=== PATIENT | female | born 1980 | race Caucasian/White ===

== ENCOUNTER 2016-10-28 05:10 | Inpatient (IN) | payer MEDICAID ==
[2016-10-28] MEDS ORDERED: LACTATED RINGERS 1,000 ML ONE (05:46)
[2016-10-28] MEDS ORDERED: SUBLIMAZE IV PRN (05:56)
[2016-10-28] MEDS ORDERED: POLYCILLIN/NS 2 GM/100 ML 2 GM/100 ML BAG IV ONE ×2 (05:56→06:00)
[2016-10-28] MEDS ORDERED: XYLOCAINE 2% INFILTRATI ONE (05:56)
[2016-10-28] MEDS ORDERED: BRETHINE SUB-Q PRN (05:56)
[2016-10-28] MEDS ORDERED: ZOFRAN IV PRN (05:56)
[2016-10-28] MEDS ORDERED: MINERAL OIL PO PRN (05:56)
[2016-10-28] MEDS ORDERED: ePHEDrine SULFATE IV PRN (05:56)
[2016-10-28] MEDS ORDERED: PITOCin/NS 30 UNIT/500ML 30 UNITS/500 ML BAG IV SCH (06:00)
[2016-10-28] MEDS ORDERED: PITOCin/NS 20 UNIT/1000ML DRIP 20 UNITS/1,000 ML BAG IV SCH (06:00)
[2016-10-28] MEDS ORDERED: LACTATED RINGERS 1,000 ML IV SCH (06:00)
[2016-10-28 06:12] LABS: Hematocrit 41.9 % (30.3-42.9); Hemoglobin 14.1 gm/dl (10.1-14.3); Mean Corpuscular HGB Conc 34 % (30-34); Mean Corpuscular Hemoglobin 30 pg (28-32); Mean Corpuscular Volume 89 fl (79-97); Platelet Count 162 K/mm3 (140-440); Red Blood Count 4.73 M/mm3 (3.65-5.03); Red Cell Distribution Width 15.5 % (13.2-15.2); White Blood Count 7.2 K/mm3 (4.5-11.0)
--- NOTE | 2016-10-28 06:23 | History and Physical Report ---
History of Present Illness Date of examination: 10/28/16 (Pt arrived to Triage with SROM clear fluid) Date of admission: 10/28/16 05:17 History of present illness: EDC Confirmation: 11/05/2016 Gestational Age: 9 3/7 weeks Past History : 3 Term Births: 2 Living Children: 2 Para: 2 # 1 Delivery date: 11/18/2008 Weeks Gestation: 40 Delivery type: Delivery location: [facility] Infant Sex: Female Comments: normal size # 2 Delivery date: 12/03/2009 Weeks Gestation: 40 Delivery type: Delivery location: [facility] Sex: Female Comments: normal size Past Medical History: Negative Past Medical History Past Surgical History: negative Past Medical History Anesthesia Complications: negative Anemia: negative Autoimmune Disorder: negative Bleeding Disorder: negative Blood Transfusions: negative Breast Disease: negative Diabetes: negative Heart Disease: negative Hypertension: negative Hepatitis/Liver Disease: negative Kidney Disease/UTI: negative Neurologic/Epilepsy/Migraines: negative Phlebitis/Varicosities: negative Psychiatric: negative Pulmonary Disease/Asthma: negative Thyroid Disease: negative Hospitalizations: negative 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 of genital herpes: no Partner hx. of genital herpes: no Varicella/Chicken Pox Status: Unknown TB Risk: no Genetic History ADVANCED MATERNAL AGE Congenital Heart Defect: Mom: no Dad: no Ramirez Disease: Mom: no Dad: no Thalassemia Mom: no Dad: no Neural Tube Defect Mom: no Dad: no Down's Syndrome Mom: no Dad: no Dedrick-Sachs Mom: no Dad: no Sickle Cell Disease/Trait Mom: no Dad: no Hemophilia Mom: no Dad: no Muscular Dystrophy Mom: no Dad: no Cystic Fibrosis Mom: no Dad: no [place] Chorea Mom: no Dad: no Mental Retardation Mom: no Dad: no Fragile X Mom: no Dad: no Other Genetic/Chromosomal Disorder Mom: no Dad: no Child w/other defect Mom: no Dad: yes Comments: nephew autism Enviromental Exposures Xray Exposure: no Medication, drug, or alcohol use since LMP: no Chemical/Other Exposure: no Active Medications: None Current Allergies (reviewed today): No known allergies Laboratory Results Routine Urinalysis Leukocytes: negative Nitrite: negative Urobilinogen: negative Protein: negative Blood: negative Ketone: negative Bilirubin: negative Glucose: negative Urine HCG: positive Review of Systems General Denies fever, chills, sweats, anorexia, fatigue, weakness, malaise, weight loss and sleep disorder. Denies nausea, vomiting, headache, swelling of legs, abdominal pain, vaginal discharge, vaginal bleeding and contractions. Denies vaginal discharge, incontinence, dysuria, hematuria, urinary frequency, amenorrhea, menorrhagia, abnormal vaginal bleeding, pelvic pain, genital sores, decreased libido, painful periods, painful sex, urinary urgency, hot flashes, vaginal dryness, vaginal itching and vaginal odor. CV Denies chest pains, palpitations, syncope, dyspnea on exertion, orthopnea, PND and peripheral edema. Resp Denies cough, dyspnea at rest, excessive sputum, hemoptysis, wheezing and pleurisy. GI Denies nausea, vomiting, diarrhea, constipation, change in bowel habits, abdominal pain, melena, hematochezia, jaundice, gas/bloating, indigestion/ heartburn, dysphagia and odynophagia. Endo Denies cold intolerance, heat intolerance, polydipsia, polyphagia, polyuria and unusual weight change. Breast Denies left breast lump, right breast lump, nipple discharge, bloody discharge from nipple, breast pain, abnormal mammogram and breast enlargement. MS Denies back pain, joint pain, joint swelling, muscle cramps, muscle weakness, stiffness, arthritis, sciatica, restless legs, leg pain at night and leg pain with exertion. Derm Denies rash, itching, dryness and suspicious lesions. Neuro Denies paralysis, paresthesias, headache, seizures, tremors, vertigo, transient blindness, frequent falls, frequent headaches and difficulty walking. Psych Denies depression, anxiety, irritability and mood swings. Eyes Denies blurring, diplopia, irritation, discharge, vision loss, eye pain and photophobia. ENT Denies earache, ear discharge, tinnitus, decreased hearing, nasal congestion, nosebleeds, sore throat and hoarseness. Allergy Denies urticaria, allergic rash, hay fever and recurrent infections. Heme Denies abnormal bruising, bleeding and enlarged lymph nodes. PHYSICAL EXAM HEENT: PERRLA, normal conjunctiva, external nose and nasal mucosa normal, oropharynx clear Neck/Thyroid: supple, thyroid normal Skin no significant abnormal lesions or rashes Chest: respiratory effort normal, clear to auscultation Breasts: normal without skin changes or masses CV: regular, normal S1-S2, no murmur, no rub, no gallop Abdomen: normal bowel sounds, soft, nontender, no HSM Musculoskeletal: grossly normal ROM in joints, no joint tenderness or muscle weakness Neuro: grossly normal DTRs, sensation, strength, cranial nerves Extremities: no clubbing, cyanosis, or edema TRAFFIC OFFICER Exams Vulva/Vagina: No lesions, normal BUS, normal rugae Cervix: No lesions; no cervical motion tenderness Uterus: normal size and position, midline, mobile--about 9 wk, bladder full so hard to feel Adnexae: no masses or tenderness Rectovaginal: no masses or tenderness Past History - Obstetrical History Expected Date of Delivery: 11/05/16 Actual Gestation: 38 Week(s) 6 Day(s) : 3 Para: 2 Hx # Term Pregnancies: 2 Number of Living Children: 2 Medications and Allergies Allergies Allergy/AdvReac Type Severity Reaction Status Date / Time No Known Allergies Allergy Verified 10/28/16 05:59 Active Meds: Active Medications Fentanyl (Sublimaze) 100 mcg IV Q2H PRN PRN Reason: Labor Pain Ampicillin Sodium (Polycillin/Ns 1 Gm/50 Ml) 1 gm in 50 mls @ 100 mls/hr IV Q4HR ESTELITA PRN Reason: Protocol Ampicillin Sodium (Polycillin/Ns 2 Gm/100 Ml) 2 gm in 100 mls @ 100 mls/hr IV ONCE ONE PRN Reason: Protocol Stop: 10/28/16 06:55 Lactated Ringer's (Lactated Ringers) 1,000 mls @ 125 mls/hr IV DIRECT ESTELITA Oxytocin/Sodium Chloride (Pitocin/Ns 20 Unit/1000ml Drip) 20 units in 1,000 mls @ 125 mls/hr IV DIRECT ESTELITA Oxytocin/Sodium Chloride (Pitocin/Ns 30 Unit/500ml) 30 units in 500 mls @ 4 mls /hr IV Q30MIN ESTELITA PRN Reason: Protocol Mineral Oil (Mineral Oil) 30 ml PO QHS PRN PRN Reason: Constipation Ondansetron HCl (Zofran) 4 mg IV Q8H PRN PRN Reason: Nausea And Vomiting - Vital Signs Vital signs: Vital Signs Temp Pulse Resp BP Pulse Ox 97.0 F L 73 24 131/95 97 10/28/16 05:21 10/28/16 05:21 10/28/16 05:21 10/28/16 05:21 10/28/16 05:21 Temp Pulse Resp BP Pulse Ox 97.0 F L 70 24 131/95 97 10/28/16 05:21 10/28/16 05:35 10/28/16 05:21 10/28/16 05:25 10/28/16 05:35 - Physical Exam Breasts: Positive: deferred Cardiovascular: Regular rate, Normal S1, Normal S2 Lungs: Positive: Normal air movement Abdomen: Positive: normal appearance, soft, normal bowel sounds. Negative: distention, tenderness Genitourinary (Female): Positive: normal perenium Vulva: both: normal Vagina: Positive: normal moisture. Negative: discharge Cervix: Negative: lesion, discharge Uterus: Positive: normal size, normal contour Adnexa: both: normal Anus/Rectum: Positive: normal perianal skin, heme negative. Negative: rectal mass, hemorrhoids Extremities: Deep Tendon Reflex Grade: Normal +2 - Obstetrical FHR: category 1 Uterine Contraction Monitor Mode: External Cervical Dilatation: 3 (clear fluids continue) Cervical Effacement Percentage: 70 station: -2 Uterine Contraction Pattern: Regular Uterine Contraction Intensity: Moderate Results Result Diagrams: 10/28/16 05:35 Abnormal lab results 10/28/16 Range/Units 05:35 RDW 15.5 H (13.2-15.2) % All other labs normal. Chlamydia trachomatis, ANGELA Negative Negative *1 Neisseria gonorrhoeae, ANGELA Negative Negative *2 Tests: (2) Strep Gp B ANGELA (032560) ! Strep Gp B ANGELA [A] Positive HBsAg Screen Negative Negative *1 Rubella Antibodies, IgG 1.15 index Immune >0.99 *2 Non-immune <0.90 Equivocal 0.90 - 0.99 Immune >0.99 ABO Grouping O *3 Rh Factor Positive *4 Please note: Prior records for this patient's ABO / Rh type are not available for additional verification. Antibody Screen Negative Negative *5 RPR Non Reactive Non Reactive *6 WBC 8.0 x10E3/uL 3.4-10.8 *7 RBC 3.97 x10E6/uL 3.77-5.28 *8 Hemoglobin [L] 10.7 g/dL 11.1-15.9 *9 Hematocrit [L] 33.8 % 34.0-46.6 *10 MCV 85 fL 79-97 *11 MCH 27.0 pg 26.6-33.0 *12 MCHC 31.7 g/dL 31.5-35.7 *13 RDW 12.8 % 12.3-15.4 *14 Platelets 244 x10E3/uL 150-379 *15 Neutrophils 63 % *16 Lymphs 29 % *17 Monocytes 7 % *18 Eos 1 % *19 Basos 0 % *20 ! Immature Cells <No Reported Value> *21 Neutrophils (Absolute) 4.9 x10E3/uL 1.4-7.0 *22 Lymphs (Absolute) 2.3 x10E3/uL 0.7-3.1 *23 Monocytes(Absolute) 0.6 x10E3/uL 0.1-0.9 *24 Eos (Absolute) 0.1 x10E3/uL 0.0-0.4 *25 Baso (Absolute) 0.0 x10E3/uL 0.0-0.2 *26 ! Immature Granulocytes 0 % *27 ! Immature Grans (Abs) 0.0 x10E3/uL 0.0-0.1 *28 ! NRBC <No Reported Value> *29 Hematology Comments: <No Reported Value> *30 Tests: (3) HB Solu + Rflx [facility] ([id number]) Hemoglobin (Hgb) Solubility Negative Negative *33 Tests: (4) Panel 878325 ([id number]) HIV Screen 4th Generation wRfx Non Reactive Non Reactive *34 Tests: (5) HCV Ab w/Rflx to Verification ([id number]) ! HCV Ab <0.1 s/co ratio 0.0-0.9 *35 Tests: (6) Comment: ([id number]) ! Comment: [facility] *36 Non reactive HCV antibody screen is consistent with no HCV infection, unless recent infection is suspected or other evidence exists to indicate HCV infection. Assessment and Plan - Patient Problems (1) Group B Streptococcus carrier state affecting Onset Date: ~10/28/16 Current Visit: Yes Status: Acute Plan to address problem: Ampicillin started as per protocol (2) Spontaneous rupture of membranes Onset Date: ~10/28/16 Current Visit: Yes Status: Acute Plan to address problem: 35yo @ 38 weeks with SROM clear fluid. GBS+ Orders in EMR Anticipate delivery
--- NOTE | 2016-10-28 08:47 | Progress Note ---
Assessment and Plan Anticipate delivery. - Patient Problems (1) Group B Streptococcus carrier state affecting Onset Date: ~10/28/16 Current Visit: Yes Status: Acute (2) Spontaneous rupture of membranes Onset Date: ~10/28/16 Current Visit: Yes Status: Acute Subjective - Subjective Date of service: 10/28/16 (pt req pain medication) Interval history: EDC Confirmation: 11/05/2016 Gestational Age: 9 3/7 weeks Past History : 3 Term Births: 2 Living Children: 2 Para: 2 # 1 Delivery date: 11/18/2008 Weeks Gestation: 40 Delivery type: Delivery location: [facility] Infant Sex: Female Comments: normal size # 2 Delivery date: 12/03/2009 Weeks Gestation: 40 Delivery type: Delivery location: [facility] Infant Sex: Female Comments: normal size Past Medical History: Negative Past Medical History Past Surgical History: negative Past Medical History Anesthesia Complications: negative Anemia: negative Autoimmune Disorder: negative Bleeding Disorder: negative Blood Transfusions: negative Breast Disease: negative Diabetes: negative Heart Disease: negative Hypertension: negative Hepatitis/Liver Disease: negative Kidney Disease/UTI: negative Neurologic/Epilepsy/Migraines: negative Phlebitis/Varicosities: negative Psychiatric: negative Pulmonary Disease/Asthma: negative Thyroid Disease: negative Hospitalizations: negative 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 of genital herpes: no Partner hx. of genital herpes: no Varicella/Chicken Pox Status: Unknown TB Risk: no Genetic History ADVANCED MATERNAL AGE Congenital Heart Defect: Mom: no Dad: no Ramirez Disease: Mom: no Dad: no Thalassemia Mom: no Dad: no Neural Tube Defect Mom: no Dad: no Down's Syndrome Mom: no Dad: no Dedrick-Sachs Mom: no Dad: no Sickle Cell Disease/Trait Mom: no Dad: no Hemophilia Mom: no Dad: no Muscular Dystrophy Mom: no Dad: no Cystic Fibrosis Mom: no Dad: no [place] Chorea Mom: no Dad: no Mental Retardation Mom: no Dad: no Fragile X Mom: no Dad: no Other Genetic/Chromosomal Disorder Mom: no Dad: no Child w/other defect Mom: no Dad: yes Comments: nephew autism Enviromental Exposures Xray Exposure: no Medication, drug, or alcohol use since LMP: no Chemical/Other Exposure: no Active Medications: None Current Allergies (reviewed today): No known allergies Laboratory Results Routine Urinalysis Leukocytes: negative Nitrite: negative Urobilinogen: negative Protein: negative Blood: negative Ketone: negative Bilirubin: negative Glucose: negative Urine HCG: positive Review of Systems General Denies fever, chills, sweats, anorexia, fatigue, weakness, malaise, weight loss and sleep disorder. Denies nausea, vomiting, headache, swelling of legs, abdominal pain, vaginal discharge, vaginal bleeding and contractions. Denies vaginal discharge, incontinence, dysuria, hematuria, urinary frequency, amenorrhea, menorrhagia, abnormal vaginal bleeding, pelvic pain, genital sores, decreased libido, painful periods, painful sex, urinary urgency, hot flashes, vaginal dryness, vaginal itching and vaginal odor. CV Denies chest pains, palpitations, syncope, dyspnea on exertion, orthopnea, PND and peripheral edema. Resp Denies cough, dyspnea at rest, excessive sputum, hemoptysis, wheezing and pleurisy. GI Denies nausea, vomiting, diarrhea, constipation, change in bowel habits, abdominal pain, melena, hematochezia, jaundice, gas/bloating, indigestion/ heartburn, dysphagia and odynophagia. Endo Denies cold intolerance, heat intolerance, polydipsia, polyphagia, polyuria and unusual weight change. Breast Denies left breast lump, right breast lump, nipple discharge, bloody discharge from nipple, breast pain, abnormal mammogram and breast enlargement. MS Denies back pain, joint pain, joint swelling, muscle cramps, muscle weakness, stiffness, arthritis, sciatica, restless legs, leg pain at night and leg pain with exertion. Derm Denies rash, itching, dryness and suspicious lesions. Neuro Denies paralysis, paresthesias, headache, seizures, tremors, vertigo, transient blindness, frequent falls, frequent headaches and difficulty walking. Psych Denies depression, anxiety, irritability and mood swings. Eyes Denies blurring, diplopia, irritation, discharge, vision loss, eye pain and photophobia. ENT Denies earache, ear discharge, tinnitus, decreased hearing, nasal congestion, nosebleeds, sore throat and hoarseness. Allergy Denies urticaria, allergic rash, hay fever and recurrent infections. Heme Denies abnormal bruising, bleeding and enlarged lymph nodes. PHYSICAL EXAM HEENT: PERRLA, normal conjunctiva, external nose and nasal mucosa normal, oropharynx clear Neck/Thyroid: supple, thyroid normal Skin no significant abnormal lesions or rashes Chest: respiratory effort normal, clear to auscultation Breasts: normal without skin changes or masses CV: regular, normal S1-S2, no murmur, no rub, no gallop Abdomen: normal bowel sounds, soft, nontender, no HSM Musculoskeletal: grossly normal ROM in joints, no joint tenderness or muscle weakness Neuro: grossly normal DTRs, sensation, strength, cranial nerves Extremities: no clubbing, cyanosis, or edema NURSE PRACTITIONER Exams Vulva/Vagina: No lesions, normal BUS, normal rugae Cervix: No lesions; no cervical motion tenderness Uterus: normal size and position, midline, mobile--about 9 wk, bladder full so hard to feel Adnexae: no masses or tenderness Rectovaginal: no masses or tenderness Patient reports: movement normal Objective - Vital Signs Vital Signs: Vital Signs - 12hr 10/28/16 10/28/16 10/28/16 05:21 05:25 05:30 Temperature 97.0 F L Pulse Rate 73 74 71 Respiratory 24 Rate Blood Pressure 131/95 131/95 O2 Sat by Pulse 97 97 97 Oximetry 10/28/16 10/28/16 10/28/16 05:35 07:31 07:35 Temperature 97.7 F Pulse Rate 70 72 72 Respiratory 14 Rate Blood Pressure 106/71 106/71 O2 Sat by Pulse 97 97 97 Oximetry 10/28/16 10/28/16 10/28/16 07:40 07:45 07:50 Temperature Pulse Rate 84 79 71 Respiratory Rate Blood Pressure O2 Sat by Pulse 96 97 96 Oximetry 10/28/16 10/28/16 10/28/16 07:55 08:00 08:05 Temperature Pulse Rate 74 98 H 75 Respiratory Rate Blood Pressure O2 Sat by Pulse 97 97 96 Oximetry 10/28/16 10/28/16 10/28/16 08:10 08:15 08:20 Temperature Pulse Rate 80 79 72 Respiratory Rate Blood Pressure O2 Sat by Pulse 96 96 96 Oximetry 10/28/16 10/28/16 10/28/16 08:25 08:30 08:35 Temperature Pulse Rate 74 79 73 Respiratory Rate Blood Pressure O2 Sat by Pulse 96 96 97 Oximetry 08/10/28/16 10/28/16 08:40 08:41 08:45 Temperature Pulse Rate 76 86 92 H Respiratory Rate Blood Pressure O2 Sat by Pulse 98 92 94 Oximetry - Exam Breasts: deferred Cardiovascular: Regular rate Lungs: Normal air movement Abdomen: Present: normal appearance, soft. Absent: distention, tenderness Uterus: Present: normal FHR: auscultation normal, category 1 Uterine Contraction Monitor Mode: External Cervical Dilatation: 6 Cervical Effacement Percentage: 100 station: 0 Uterine Contraction Pattern: Regular Uterine Tone Measurement Phase: Resting Uterine Contraction Intensity: Moderate Extremities: normal Deep Tendon Reflex Grade: Normal +2 - Labs Labs: Abnormal Labs 10/28/16 05:35 RDW 15.5 H Laboratory Results - last 24 hr 10/28/16 10/28/16 05:35 05:35 WBC 7.2 RBC 4.73 Hgb 14.1 Hct 41.9 MCV 89 MCH 30 MCHC 34 RDW 15.5 H Plt Count 162 Blood Type O POSITIVE Antibody Screen Negative
[2016-10-28] MEDS ORDERED: NARCAN 2 MG/2 ML ONE (09:17)
[2016-10-28] MEDS ORDERED: BENADRYL PO PRN (09:33)
[2016-10-28] MEDS ORDERED: TYLENOL PO PRN (09:33)
[2016-10-28] MEDS ORDERED: LANSINOH TP PRN (09:33)
[2016-10-28] MEDS ORDERED: NORCO 5/325 PO PRN (09:33)
[2016-10-28] MEDS ORDERED: TUCKS PAD TP PRN (09:33)
--- NOTE | 2016-10-28 09:42 | Procedure Note ---
OB Delivery Note - Delivery Date of Delivery: 10/28/16 Paranormal Investigator: BARBER CASTRO Estimated blood loss: 300cc - Vaginal Delivery presentation: vertex Delivery position: OA Intrapartum events: none Delivery induction: none Delivery augmentation: pitocin Delivery monitor: external FHT, external uterine Route of delivery: Delivery placenta: spontaneous Delivery cord: nuchal cord (X 2), 3 umbilical vessels Episiotomy: none Delivery laceration: none Anesthesia: intravenous Delivery comments: live born female over intact perineum CAN X 2 reduced after delivery Baby to mom's abdomen skin to skin. Cord blood obtained Placenta and membrane delivered complete and intact, 3 vessel cord. Pit IVFs 8/9, EBL 300, Wgt 6 -1 Mom and baby remain LDR stable. - A at 1 minute: 8 at 5 minutes: 9 Gender: Female (wgt 6-1)
[2016-10-28] MEDS ORDERED: POLYCILLIN/NS 1 GM/50 ML 1 GM/50 ML BAG IV SCH (09:58)
[2016-10-28] MEDS ORDERED: DULCOLAX PR PRN (10:00)
[2016-10-28] MEDS ORDERED: SODIUM CHLORIDE FLUSH SYRINGE 10 ML IV NR (10:00)
[2016-10-28] MEDS ORDERED: PHENERGAN PO PRN (10:00)
[2016-10-28] MEDS: MOTRIN PO SCH ×3 (13:05→21:23)
[2016-10-28 20:09] LABS: Hematocrit 38.9 % (30.3-42.9); Hemoglobin 12.7 gm/dl (10.1-14.3)
[2016-10-28] MEDS: COLACE PO SCH (21:21)
[2016-10-28] MEDS ORDERED: MILK OF MAGNESIA PO PRN (22:00)
[2016-10-29] MEDS: MOTRIN PO SCH ×4 (04:00→23:57)
[2016-10-29] MEDS ORDERED: BOOSTRIX IM ONE ×2 (05:55→09:33)
--- NOTE | 2016-10-29 09:18 | Progress Note ---
Assessment and Plan - Patient Problems (1) 38 weeks gestation of Current Visit: Yes Status: Acute (2) Group B Streptococcus carrier state affecting Onset Date: ~10/28/16 Current Visit: Yes Status: Acute (3) Single live Current Visit: Yes Status: Acute (4) Spontaneous rupture of membranes Onset Date: ~10/28/16 Current Visit: Yes Status: Acute (5) Spontaneous vaginal delivery Current Visit: Yes Status: Acute Subjective - Subjective Date of service: 10/29/16 Principal diagnosis: IUP term delivered Interval history: Normal pp course, breast. GBS pos so d/c tomorrow, Hct 38 on admit, O pos Patient reports: appetite normal, voiding normally, pain well controlled, ambulating normally [place]: doing well Objective - Vital Signs Latest vital signs: Vital Signs Temp Pulse Resp BP Pulse Ox 10/29/16 04:00 16 10/29/16 00:49 18 10/29/16 00:00 98.6 F 70 16 120/76 10/28/16 21:23 16 10/28/16 19:40 98.6 F 69 16 101/71 10/28/16 15:54 99.2 F 72 18 100/60 10/28/16 12:00 98.7 F 61 18 100/65 10/28/16 09:31 76 98 10/28/16 09:30 81 114/70 Intake and Output 10/28/16 10/29/16 10/29/16 22:59 06:59 14:59 Intake Total 540 Output Total 1400 Balance -860 Intake: Oral 240 Intake, Free Water 300 Output: Urine 1400 Void 1400 Other: Total, Intake Amount 240 Total, Output Amount 800 # Voids Void 1 - Exam Breasts: Present: deferred Abdomen: Present: normal appearance, soft. Absent: distention Uterus: Present: firm Extremities: Present: normal
[2016-10-29] MEDS ORDERED: M-M-R II VACCINE SUB-Q ONE (09:33)
[2016-10-29] MEDS: PRENATAL VITAMIN PO SCH (09:59)
[2016-10-29] MEDS: COLACE PO SCH ×2 (09:59→22:17)
[2016-10-30] MEDS: MOTRIN PO SCH ×2 (05:32→12:10)
--- NOTE | 2016-10-30 07:29 | Progress Note ---
Assessment and Plan patient doing well, desires d/c home. Lochia scant, VSSAF, H&H stable. Plan for d/c home today with routine f/u in office. - Patient Problems (1) Spontaneous vaginal delivery Current Visit: Yes Status: Acute Subjective - Subjective Date of service: 10/30/16 Principal diagnosis: day #2 s/p Patient reports: appetite normal, voiding normally, pain well controlled, ambulating normally, no dizzy ambulation, no nauseated : doing well, nursing well (breast and bottle feeding) Objective - Vital Signs Latest vital signs: Vital Signs Temp Pulse Resp BP 10/30/16 00:00 98.4 F 74 18 99/64 10/29/16 16:50 98.3 F 74 18 110/72 10/29/16 08:29 97.8 F 60 18 117/69 Intake and Output 10/29/16 10/30/16 10/30/16 22:59 06:59 14:59 Intake Total 480 Balance 480 Intake: Oral 480 Other: Total, Intake Amount 480 # Voids Void 1 3 # Bowel Movements 2 - Exam Breasts: Present: normal, Cardiovascular: Present: Regular rate Lungs: Present: Clear to auscultation, Normal air movement Abdomen: Present: normal appearance, soft Vulva: both: normal Uterus: Present: normal, firm, fundal height at umbilicus Extremities: Present: normal
--- NOTE | 2016-10-30 07:31 | Discharge Summary ---
Providers - Providers Date of Admission: 10/28/16 05:17 Date of discharge: 10/30/16 (desires d/c home today) Attending physician: JAZ KRAMER Primary care physician: JAZ KRAMER Hospitalization Reason for admission: active labor Delivery: Episiotomy: none Laceration: none Other procedures: none complications: none Discharge diagnosis: IUP at term delivered baby: female Hospital course: uncomplicated vaginal delivery Condition at discharge: Good Disposition: DC-01 TO HOME OR SELFCARE - Discharge Diagnoses (1) Spontaneous vaginal delivery Status: Acute Plan - Discharge Medications Prescriptions: Ibuprofen [Motrin 600 MG tab] 600 mg PO Q8H PRN #30 tablet PRN Reason: Pain - Provider Discharge Summary Activity: routine, no sex for 6 weeks, no heavy lifting 4 weeks, no strenuous exercise Diet: routine Instructions: routine Additional instructions: [] Smoking cessation referral if applicable(refer to patient education folder for contact #) [] Refer to [facility] Booklet Call your doctor immediately for: * Fever > 100.5 * Heavy vaginal bleeding ( >1 pad per hour) * Severe persistent headache * Shortness of breath * Reddened, hot, painful area to leg or breast * Drainage or odor from incision. * Keep incision clean and dry at all times and follow doctor's instructions regarding bathing/showering - Follow up plan Follow up: JAZ KRAMER MD [Primary Care Provider] - 11/28/16 (Congratulations! Please call [phone] to schedule your visit in 4 weeks. Call for any questions or concerns. )
[2016-10-30] MEDS: COLACE PO SCH (09:44)
[2016-10-30] MEDS: PRENATAL VITAMIN PO SCH (09:44)
[2016-10-30 13:57] VITALS: BP 117/66
== END 2016-10-30 16:45 | disposition home or self-care (01) | DRG 775 ==
LOC: TRG 05:10 → LD 05:17 → OB 12:04
PROVIDERS: ADMIT Obstetrics & Gynecology; ATTEND Obstetrics & Gynecology
PROC: 10E0XZZ Delivery of Products of Conception, External Approach (ICD-10-PCS; principal; 2016-10-28)
PROC: 3E0234Z Introduction of Serum, Toxoid and Vaccine into Muscle, Percutaneous Approach (ICD-10-PCS; 2016-10-29)
DX: O99.824 Streptococcus B carrier state complicating childbirth (principal); O69.81X0 Labor and delivery complicated by cord around neck, without compression, not applicable or unspecified; O09.523 Supervision of elderly multigravida, third trimester; Z23 Encounter for immunization; Z3A.38 38 weeks gestation of pregnancy; Z37.0 Single live birth
CPT/HCPCS: 36415; 85014; 85018; 85027; 86592; 86850; 86900; 86901; 90715; 99211; A6250; G0463; J0290; J2310; J2590; J3010; J7120